=== PATIENT | female | born 1975 | race Caucasian/White ===

== ENCOUNTER 2022-06-01 07:22 | Emergency (ER) | payer OTHER ==
[~2022-06-01] VITALS: Ht 160 cm; Wt 63.0 kg
[2022-06-01] MEDS ORDERED: ONDANSETRON HCL 4MG/2ML INJ IV STA (07:34)
[2022-06-01] MEDS ORDERED: MORPHINE SULFATE 4 MG/ML CPJ (NOT FOR IM USE) IV STA (07:34)
[2022-06-01 09:20] LABS: CHLORIDE 108 mEq/L (98-107)
[2022-06-01 09:33] LABS: BASOPHILS % 0.2 % (0.0-2.0); HEMOGLOBIN. 10.4 g/dL (12.0-16.0); LYMPHOCYTES % 8.5 % (20.0-50.0); MEAN CORPUSCULAR HEMOGLOBIN 30.3 pg (28.0-32.0); MEAN CORPUSCULAR VOLUME 87.8 fL (81.0-99.0); MEAN PLATELET VOLUME 9.7 fl (7.4-10.4); MONOCYTES % 6.7 % (2.0-8.0); NEUTROPHILS % 84.6 % (40.0-76.0); PLATELET 300 x1000/uL (130-400); RED BLOOD CELL COUNT 3.42 mill/uL (4.2-5.4); RED CELL DISTRIBUTION WIDTH 13.5 % (11.6-14.6)
[2022-06-01 09:38] LABS: INR 1.1; PROTHROMBIN TIME 11.7 sec (9.6-11.0)
[2022-06-01] MEDS ORDERED: MORPHINE SULFATE 4 MG/ML CPJ (NOT FOR IM USE) IV ONE (10:30)
[2022-06-01 12:11] LABS: CLARITY URINE CLEAR (CLEAR); COLOR URINE YELLOW (YELLOW); KETONES URINE 3+ (NEGATIVE); LEUKOCYTE ESTERASE URINE 1+ (NEGATIVE); NITRITE URINE NEGATIVE (NEGATIVE); OCCULT BLOOD URINE 3+ (NEGATIVE); PH URINE 5.5 (4.5-8.0); PROTEIN URINE 1+ (NEGATIVE); SPECIFIC GRAVITY URINE 1.014 (1.005-1.030); UROBILINOGEN URINE 0.2 E.U./dL (0.2-1.0)
[2022-06-01] MEDS ORDERED: MORPHINE SULFATE 4 MG/ML CPJ (NOT FOR IM USE) IV SCH (14:00)
[2022-06-01 15:02] VITALS: BP 114/68
== END 2022-06-01 15:30 | disposition short-term general hospital (02) ==
LOC: ER 07:22
DX: R10.9 Unspecified abdominal pain (principal); Z20.822 Contact with and (suspected) exposure to COVID-19; Z98.890 Other specified postprocedural states
CPT/HCPCS: 36415; 74176; 80053; 81003; 83690; 85025; 85610; 87426; 96374; 96375; 96376; 99285; C9803; J2270; J2405

== ENCOUNTER 2024-05-20 07:47 | Emergency (ER) | payer OTHER ==
[~2024-05-20] VITALS: Ht 152.4 cm; Wt 59.0 kg
[2024-05-20 07:54] VITALS: O2SAT 100
[2024-05-20] MEDS ORDERED: VANCOMYCIN 1.5GM/250ML 250 ML IV STA (08:21)
[2024-05-20] MEDS ORDERED: ACETAMINOPHEN 325MG TABLET PO ONE (08:30)
[2024-05-20 09:05] LABS: BASOPHILS % 0.3 % (0.0-2.0); EOSINOPHILS % 0.4 % (0.0-5.0); HEMOGLOBIN. 13.8 g/dL (12.0-16.0); LYMPHOCYTES % 18.6 % (20.0-50.0); MEAN CORPUSCULAR HEMOGLOBIN 29.9 pg (28.0-32.0); MEAN CORPUSCULAR HGB CONC 34.5 g/dL (31.0-37.0); MEAN CORPUSCULAR VOLUME 86.7 fL (81.0-99.0); MEAN PLATELET VOLUME 9.4 fl (7.4-10.4); MONOCYTES % 12.1 % (2.0-8.0); NEUTROPHILS % 68.6 % (40.0-76.0); PLATELET 226 x1000/uL (130-400); RED BLOOD CELL COUNT 4.62 mill/uL (4.2-5.4); RED CELL DISTRIBUTION WIDTH 13.5 % (11.6-14.6); WHITE BLOOD COUNT 6.3 x1000/uL (4.5-11.0)
[2024-05-20 09:11] LABS: HCG SCREEN NEGATIVE
[2024-05-20 09:29] LABS: CHLORIDE 105 mEq/L (98-107); POTASSIUM 3.7 mEq/L (3.5-5.1); SODIUM 138 mEq/L (136-145)
[2024-05-20 09:31] LABS: CALCIUM 9.9 mg/dL (8.7-10.4); CARBON DIOXIDE 26 mEq/L (21-32)
[2024-05-20 09:36] LABS: CREATININE 0.8 mg/dL (0.6-1.0); GLUCOSE 105 mg/dL (70-105); UREA NITROGEN BLOOD 13 mg/dL (9-23)
[2024-05-20 09:38] LABS: ALANINE AMINOTRANSFERASE 63 IU/L (10-49); ALBUMIN 4.6 g/dL (3.2-4.8); ASPARTATE AMINOTRANSFERASE 51 IU/L (<34); BILIRUBIN DIRECT 0.2 mg/dL (<=3.0); BILIRUBIN TOTAL 0.7 mg/dL (0.1-1.0); PROTEIN TOTAL 7.9 g/dL (6.0-8.3)
[2024-05-20] MEDS ORDERED: VANCOMYCIN 750MG PMX (XELLIA) 150 ML IV NR ×2 (14:00→15:00)
[2024-05-20] MEDS: ACETAMINOPHEN 325MG TABLET PO NR (14:34)
[2024-05-20] MEDS: AMPICILLIN SOD/SULBACTAM NA 3 G in SODIUM CHLORIDE 0.9% 100 ML IV SCH (15:33)
[2024-05-20] MEDS: LACTATED RINGERS 1,000 ML IV SCH (15:33)
[2024-05-20] MEDS: KETOROLAC 15MG/ML VIAL IV ONE (15:55)
[2024-05-20 15:58] VITALS: BP 140/76; PULSE 52; RESP 18; TEMP 36.78072; O2SAT 100
== END 2024-05-20 16:34 | disposition short-term general hospital (02) ==
LOC: ER 07:47 → CANBEDREQ 11:49 → ER 16:34
DX: L03.213 Periorbital cellulitis (principal); H10.9 Unspecified conjunctivitis; Z90.710 Acquired absence of both cervix and uterus
CPT/HCPCS: 80076; 80048; 84703; 85025; 87040; 36415; 70487; 96374; 96375; 99285; J0295; J1885; J7050; Z7610 ×2; J3370

== ENCOUNTER 2025-01-24 17:31 | Emergency (ER) | payer OTHER ==
[~2025-01-24] VITALS: Ht 162.6 cm; Wt 64.0 kg
[2025-01-24 17:35] VITALS: TEMP 36.8; O2SAT 97
[2025-01-24] MEDS ORDERED: MAGNESIUM/ALUMINUM HYDROXIDE/SIMETHICONE 30ML UDC PO ONE (18:15)
[2025-01-24] MEDS ORDERED: ONDANSETRON 4MG ODT PO ONE (18:15)
[2025-01-24] MEDS ORDERED: DICYCLOMINE HCL 10MG CAPSULE PO ONE (18:15)
[2025-01-24] MEDS: DICYCLOMINE HCL 10MG CAPSULE PO SCH (18:17)
[2025-01-24] MEDS: ONDANSETRON 4MG ODT PO SCH (18:17)
[2025-01-24] MEDS: MAGNESIUM/ALUMINUM HYDROXIDE/SIMETHICONE 30ML UDC PO SCH (18:17)
[2025-01-24 19:02] LABS: BASOPHILS % 0.3 % (0.0-2.0); EOSINOPHILS % 0.2 % (0.0-5.0); HEMATOCRIT. 38.9 % (36.0-48.0); HEMOGLOBIN. 12.8 g/dL (12.0-16.0); LYMPHOCYTES % 16.5 % (20.0-50.0); MEAN CORPUSCULAR HEMOGLOBIN 28.8 pg (28.0-32.0); MEAN CORPUSCULAR HGB CONC 32.9 g/dL (31.0-37.0); MEAN CORPUSCULAR VOLUME 87.5 fL (81.0-99.0); MEAN PLATELET VOLUME 10.6 fl (7.4-10.4); MONOCYTES % 4.8 % (2.0-8.0); NEUTROPHILS % 78.2 % (40.0-76.0); PLATELET 321 x1000/uL (130-400); RED BLOOD CELL COUNT 4.45 mill/uL (4.2-5.4); RED CELL DISTRIBUTION WIDTH 12.8 % (11.6-14.6); WHITE BLOOD COUNT 13.4 x1000/uL (4.5-11.0)
[2025-01-24 19:13] LABS: CHLORIDE 107 mEq/L (98-107); POTASSIUM 3.8 mEq/L (3.5-5.1); SODIUM 143 mEq/L (136-145)
[2025-01-24 19:15] LABS: CALCIUM 10.3 mg/dL (8.7-10.4); CARBON DIOXIDE 25 mEq/L (21-32)
[2025-01-24 19:20] LABS: CREATININE 0.9 mg/dL (0.6-1.0); GLUCOSE 153 mg/dL (70-105); UREA NITROGEN BLOOD 15 mg/dL (9-23)
[2025-01-24 19:22] LABS: ALANINE AMINOTRANSFERASE 25 IU/L (10-49); ALBUMIN 4.6 g/dL (3.2-4.8); ASPARTATE AMINOTRANSFERASE 41 IU/L (<34); BILIRUBIN DIRECT < 0.1 mg/dL (<=3.0); BILIRUBIN TOTAL 0.4 mg/dL (0.1-1.0); PROTEIN TOTAL 7.4 g/dL (6.0-8.3)
[2025-01-24] MEDS ORDERED: IBUP-2029 MT (19:56)
[2025-01-24 20:25] VITALS: BP 102/55; PULSE 77; RESP 17; O2SAT 100
[2025-01-24 20:54] LABS: CLARITY URINE CLEAR (CLEAR); COLOR URINE DARK YELLOW (YELLOW); GLUCOSE URINE NEGATIVE (NEGATIVE); KETONES URINE TRACE (NEGATIVE); LEUKOCYTE ESTERASE URINE 1+ (NEGATIVE); NITRITE URINE POSITIVE (NEGATIVE); OCCULT BLOOD URINE TRACE (NEGATIVE); PROTEIN URINE 1+ (NEGATIVE); SPECIFIC GRAVITY URINE 1.027 (1.005-1.030)
[2025-01-24 21:04] LABS: BACTERIA URINE 3+; RBC URINE 0-2 /hpf (0-2); SQUAMOUS EPITHELIAL CELL URINE FEW /lpf (RARE/1+)
[2025-01-24] MEDS ORDERED: CEPH500T MT (21:23)
[2025-01-24] MEDS: CEPHALEXIN 250MG CAPSULE PO ONE (21:33)
[2025-01-24 22:28] LABS: HCG SCREEN INDETERMINATE
== END 2025-01-24 21:35 | disposition home or self-care (01) ==
LOC: ER 17:31
DX: N83.209 Unspecified ovarian cyst, unspecified side (principal); Z90.710 Acquired absence of both cervix and uterus; Z79.899 Other long term (current) drug therapy
CPT/HCPCS: 99284; 74176; 80076; 80048; 81003; 81025; 84703; 83690; 85025; 36415; Q0162